=== PATIENT | female | born 1975 | race Caucasian/White ===

== ENCOUNTER 2021-03-04 16:52 | Emergency (ER) | payer BC ==
[~2021-03-04] VITALS: Ht 165.1 cm; Wt 79.0 kg
[2021-03-04] MEDS ORDERED: IBUPROFEN 600MG TABLET PO ONE (17:15)
[2021-03-04 17:34] LABS: BASOPHILS % 0.7 % (0.0-2.0); HEMATOCRIT. 39.6 % (36.0-48.0); HEMOGLOBIN. 13.5 g/dL (12.0-16.0); LYMPHOCYTES % 32.9 % (20.0-50.0); MEAN CORPUSCULAR HEMOGLOBIN 31.8 pg (28.0-32.0); MEAN CORPUSCULAR VOLUME 93.2 fL (81.0-99.0); MEAN PLATELET VOLUME 7.9 fl (7.4-10.4); MONOCYTES % 9.6 % (2.0-8.0); NEUTROPHILS % 54.8 % (40.0-76.0); PLATELET 236 x1000/uL (130-400); RED BLOOD CELL COUNT 4.25 mill/uL (4.2-5.4); RED CELL DISTRIBUTION WIDTH 13.3 % (11.6-14.6)
[2021-03-04 17:38] LABS: CHLORIDE 109 mEq/L (98-107)
[2021-03-04 19:17] VITALS: BP 121/85
== END 2021-03-04 19:18 | disposition home or self-care (01) ==
LOC: ER 16:52
DX: R07.89 Other chest pain (principal); M79.7 Fibromyalgia; Z90.710 Acquired absence of both cervix and uterus
CPT/HCPCS: 36415; 71045; 80053; 84484; 85025; 93005; 99285

== ENCOUNTER 2021-04-27 05:51 | Emergency (ER) | payer MEDICARE, MEDICAID ==
[~2021-04-27] VITALS: Ht 165.1 cm; Wt 81.0 kg
[2021-04-27] MEDS ORDERED: HYDROCODONE/ACETAMINOPHEN 5/325MG TABLET PO ONE (06:15)
[2021-04-27 06:26] VITALS: BP 110/69
== END 2021-04-27 07:54 | disposition home or self-care (01) ==
LOC: ER 06:23
DX: S30.0XXA Contusion of lower back and pelvis, initial encounter (principal); S49.91XA Unspecified injury of right shoulder and upper arm, initial encounter; Z88.1 Allergy status to other antibiotic agents; E11.9 Type 2 diabetes mellitus without complications; W01.0XXA Fall on same level from slipping, tripping and stumbling without subsequent striking against object, initial encounter; Y93.89 Activity, other specified; Y92.89 Other specified places as the place of occurrence of the external cause; Y99.8 Other external cause status
CPT/HCPCS: 72220; 73030; 99284; A4565